=== PATIENT | male | born 1935 | race Caucasian/White ===

== ENCOUNTER 2018-01-12 18:44 | Inpatient (IN) ==
--- NOTE | 2018-01-12 20:12 | ED ---
HPI General Chief complaint: Psychiatric Symptoms Stated complaint: Psych eval / SMA Transport Time Seen by Provider: 01/12/18 19:58 History of Present Illness HPI narrative: 82 y/o male sh[place] under [place] from [employer]. According to his paperwork he has been feeling suicidal, thoughts of running into traffic. he reprots that he has been arguing with his and he cant take it anymore. He feels that she is controlling and he feels backed up to a wall. Hx of dementia and atrial fibrillation per patient. Symptoms moderate, duration unknown, aggravated by life stressors. No drug/alcohol use, HI, AH/VH. Related Data Home Medications Medication Instructions Recorded Confirmed warfarin 01/12/18 Allergies Allergy/AdvReac Type Severity Reaction Status Date / Time No Known Allergies Allergy Verified 01/12/18 20:11 Review of Systems ROS: all other systems reviewed are negative [facility] Medical History Medical History Atrial fibrillation (Acute) Undescended testicle (Acute) Social History Social History Substance History: No History of Abuse Smoking Status: Never smoker How Often Do You Have a Drink Containing Alcohol: Never Recent Travel in [facility] within the Last 8 Weeks: No Recent Out of Country Travel within the Last 8 Weeks: No Exam Narrative Exam Narrative: GENERAL: Well-developed well-nourished male in no acute distress answering questions appropriately. SKIN: Warm and dry. HEAD: Atraumatic. Normocephalic. EYES: Pupils equal and round. No scleral icterus. No injection or drainage. ENT: No nasal bleeding or discharge. Mucous membranes pink and moist. NECK: Trachea midline. No JVD. CARDIOVASCULAR: Irregular rate and rhythm. No murmur appreciated. RESPIRATORY: No accessory muscle use. Clear to auscultation. Breath sounds equal bilaterally. GASTROINTESTINAL: Abdomen soft, non-tender, nondistended. Hepatic and splenic margins not palpable. MUSCULOSKELETAL: No obvious deformities. No clubbing. No cyanosis. No edema. NEUROLOGICAL: Awake and alert. No obvious cranial nerve deficits. Motor grossly within normal limits. Normal speech. PSYCHIATRIC: Depressed mood. Insight and judgment normal. Course Initial Documented Vital Signs Temperature 98.0 F 01/12/18 19:12 Pulse Rate 81 01/12/18 19:12 Respiratory Rate 18 01/12/18 19:12 Blood Pressure 162/92 H 01/12/18 19:12 Pulse Oximetry 98 01/12/18 19:12 Last Documented Vital Signs Temperature 98.0 F 01/12/18 19:12 Pulse Rate 81 01/12/18 19:12 Respiratory Rate 18 01/12/18 19:12 Blood Pressure 162/92 H 01/12/18 19:12 Pulse Oximetry 98 01/12/18 19:12 Medical Decision Making MDM Narrative Medical decision making narrative: Mental health screening discussed with the patient. Psychiatric screen ordered. Lab work has been reviewed. INR is therapeutic. The patient is medically cleared for psychiatric disposition. Medical Screen Exam Complete: Yes Emergency Medical Condition: Yes Differential Diagnosis Differential Diagnosis: Adjustment reaction, acute psychosis, major depressive disorder, depressive disorder not otherwise specified Lab Data Result diagrams: 01/12/18 19:42 01/12/18 19:42 Lab Results 01/12/18 01/12/18 01/12/18 Range/Units 19:42 19:42 19:42 WBC 5.4 (4.0-11.0) th/mm3 RBC 4.44 L (4.50-5.90) mil/mm3 Hgb 14.8 (13.0-17.0) gm/dL Hct 42.7 (39.0-51.0) % MCV 96.1 (80.0-100.0) fL MCH 33.4 (27.0-34.0) pg MCHC 34.7 (32.0-36.0) % RDW 13.8 (11.6-17.2) % Plt Count 140 L (150-450) th/mm3 MPV 8.9 (7.0-11.0) fL Neut % (Auto) 72.4 H (16.0-70.0) % Lymph % (Auto) 18.8 (9.0-44.0) % [place] % (Auto) 8.0 (0.0-8.0) % Eos % (Auto) 0.7 (0.0-4.0) % Baso % (Auto) 0.1 (0.0-2.0) % Neut # (Auto) 3.9 (1.8-7.7) th/mm3 Lymph # (Auto) 1.0 (1.0-4.8) th/mm3 [place] # (Auto) 0.4 (0.0-0.9) th/mm3 Eos # (Auto) 0.0 (0.0-0.4) th/mm3 Baso # (Auto) 0.0 (0.0-0.2) th/mm3 WBC Differential . Differential Comment Auto diff final PT 27.4 H (9.8-11.6) sec INR 2.7 Ratio Sodium 139 (136-145) meq/L Potassium 3.9 (3.5-5.1) meq/L Chloride 103 (98-107) meq/L Carbon Dioxide 26.5 (21.0-32.0) meq/L Anion Gap 10 (5-15) meq/L BUN 18 (7-18) mg/dL Creatinine 1.08 (0.60-1.30) mg/dL Estimated GFR 65 L (>89) mL/min Random Glucose 85 (74-106) mg/dL Calcium 9.6 (8.5-10.1) mg/dL Magnesium 2.0 (1.5-2.5) mg/dL Total Bilirubin 1.9 H (0.2-1.0) mg/dL AST 26 (15-37) U/L ALT 26 (12-78) U/L Alkaline Phosphatase 51 (45-117) U/L Total Protein 7.7 (6.4-8.2) g/dL Albumin 4.1 (3.4-5.0) g/dL TSH 1.650 (0.358-3.740) uIU/mL Urine Opiates Screen (Neg) Ur Barbiturates Screen (Neg) Ur Amphetamines Screen (Neg) U Benzodiazepines Scrn (Neg) Urine Cocaine Screen (Neg) U Cannabinoids Screen (Neg) Serum Alcohol Less than 3 (0-5) mg/dL 01/12/18 Range/Units 20:11 WBC (4.0-11.0) th/mm3 RBC (4.50-5.90) mil/mm3 Hgb (13.0-17.0) gm/dL Hct (39.0-51.0) % MCV (80.0-100.0) fL MCH (27.0-34.0) pg MCHC (32.0-36.0) % RDW (11.6-17.2) % Plt Count (150-450) th/mm3 MPV (7.0-11.0) fL Neut % (Auto) (16.0-70.0) % Lymph % (Auto) (9.0-44.0) % [place] % (Auto) (0.0-8.0) % Eos % (Auto) (0.0-4.0) % Baso % (Auto) (0.0-2.0) % Neut # (Auto) (1.8-7.7) th/mm3 Lymph # (Auto) (1.0-4.8) th/mm3 [place] # (Auto) (0.0-0.9) th/mm3 Eos # (Auto) (0.0-0.4) th/mm3 Baso # (Auto) (0.0-0.2) th/mm3 WBC Differential Differential Comment PT (9.8-11.6) sec INR Ratio Sodium (136-145) meq/L Potassium (3.5-5.1) meq/L Chloride (98-107) meq/L Carbon Dioxide (21.0-32.0) meq/L Anion Gap (5-15) meq/L BUN (7-18) mg/dL Creatinine (0.60-1.30) mg/dL Estimated GFR (>89) mL/min Random Glucose (74-106) mg/dL Calcium (8.5-10.1) mg/dL Magnesium (1.5-2.5) mg/dL Total Bilirubin (0.2-1.0) mg/dL AST (15-37) U/L ALT (12-78) U/L Alkaline Phosphatase (45-117) U/L Total Protein (6.4-8.2) g/dL Albumin (3.4-5.0) g/dL TSH (0.358-3.740) uIU/mL Urine Opiates Screen Neg (Neg) Ur Barbiturates Screen Neg (Neg) Ur Amphetamines Screen Neg (Neg) U Benzodiazepines Scrn Neg (Neg) Urine Cocaine Screen Neg (Neg) U Cannabinoids Screen Neg (Neg) Serum Alcohol (0-5) mg/dL Discharge Plan Discharge Disposition Patient Disposition: 30 Still Patient Discharge Condition Condition: Stable Discharge Details Diagnosis: Encounter for medical clearance for patient hold Physicians Team ED Provider: Moises Segovia ED Midlevel Provider: Tayo Zepeda Rxs /Orders / Referrals /Forms Prescriptions: No Action warfarin 5 mg Tablet RF: 0 Status ED Status: With Doctor
[2018-01-12 21:02] LABS: Baso % (Auto) 0.1 % (0.0-2.0); Eos % (Auto) 0.7 % (0.0-4.0); Hematocrit 42.7 % (39.0-51.0); Hemoglobin 14.8 gm/dL (13.0-17.0); Lymph % (Auto) 18.8 % (9.0-44.0); Mean Corpuscular HGB Conc 34.7 % (32.0-36.0); Mean Corpuscular Hemoglobin 33.4 pg (27.0-34.0); Mean Corpuscular Volume 96.1 fL (80.0-100.0); Mean Platelet Volume 8.9 fL (7.0-11.0); Mono # (Auto) 0.4 th/mm3 (0.0-0.9); Neut # (Auto) 3.9 th/mm3 (1.8-7.7); Neut % (Auto) 72.4 % (16.0-70.0); Platelet Count 140 th/mm3 (150-450); Red Blood Count 4.44 mil/mm3 (4.50-5.90); Red Cell Distribution Width 13.8 % (11.6-17.2); White Blood Count 5.4 th/mm3 (4.0-11.0)
[2018-01-12 21:07] LABS: Amphetamine Screen,Urine Neg (Neg); Barbiturate Screen,Urine Neg (Neg); Cannabinoid Screen,Urine Neg (Neg); Cocaine Screen,Urine Neg (Neg)
[2018-01-12 21:16] LABS: Albumin 4.1 g/dL (3.4-5.0); Anion Gap 10 meq/L (5-15); Aspartate Aminotransferase 26 U/L (15-37); Blood Urea Nitrogen 18 mg/dL (7-18); Calcium 9.6 mg/dL (8.5-10.1); Carbon Dioxide 26.5 meq/L (21.0-32.0); Chloride 103 meq/L (98-107); Glomerular Filtration Rate 65 mL/min (>89); Glucose,Random 85 mg/dL (74-106); Potassium 3.9 meq/L (3.5-5.1); Sodium 139 meq/L (136-145)
[2018-01-12 21:17] LABS: Alanine Aminotransferase 26 U/L (12-78)
[2018-01-12 21:18] LABS: Opiate Screen,Urine Neg (Neg)
[2018-01-12 21:19] LABS: INR 2.7 Ratio; Prothrombin Time 27.4 sec (9.8-11.6)
[2018-01-12 21:26] LABS: Alkaline Phosphatase 51 U/L (45-117); Total Protein 7.7 g/dL (6.4-8.2)
[2018-01-13] MEDS ORDERED: Bisacodyl 10 MG Supp RECTAL PRN (11:14)
[2018-01-13] MEDS ORDERED: Aluminum/Magnesium/Simethacone Susp 30 ML UDC PO PRN (11:14)
[2018-01-13] MEDS: Senna/Docusate Sodium 8.6/50 MG Tablet PO SCH (21:44)
[2018-01-14 07:41] LABS: Calcium 8.7 mg/dL (8.5-10.1); Carbon Dioxide 29.4 meq/L (21.0-32.0); Chol/HDL Ratio 2.04 Ratio; HDL Cholesterol 70.8 mg/dL (40.0-60.0); Potassium 3.9 meq/L (3.5-5.1)
[2018-01-14] MEDS: Senna/Docusate Sodium 8.6/50 MG Tablet PO SCH ×2 (09:52→20:50)
--- NOTE | 2018-01-14 13:43 | P.HPPSY ---
Provisional Diagnosis Admission Date: January 13, 2018 11:14 Competence Certification of Person's Competence To Provide Express and Informed Consent I have personally examined Moises Lorenz, a person being served at [facility] on, January 14, 2018 1937. Express and informed consent means consent voluntarily given in writing, by a competent person, after sufficient explanation and disclosure of the subject matter involved to enable the person to make a knowing and willful decision without any element of force, fraud, deceit, duress, or other form of constraint or coercion. This person is 18 years of age or older, is not now known to be incompetent to consent to treatment with a guardian advocate, and does not have a health care surrogate or proxy currently making medical treatment decisions. I have found this person to be one of the following: [X] Competent to provide express and informed consent, as defined above, for voluntary admission to this facility and is competent to provide express and informed consent for treatment. He/she has the consistent capacity to make well reasoned, willful, and knowing decisions concerning his or her medical or mental health treatment. The person fully and consistently understands the purpose of the admission for examination/placement and is fully capable of personally exercising all rights assured under [place] [] Incompetent to provide express and informed consent to voluntary admission, and this is incompetent to provide express and informed consent to treatment. The person must be transferred to involuntary status and a petition for a guardian advocate filed with the Circuit Court. [] Refusing to provide express and informed consent to voluntary admission but is competent to provide express and informed consent for treatment. The person must be discharged or transferred to involuntary status. Form shall be completed within 24 hours of a person's arrival at the receiving facility and filed in the clinical record of each person: 1. Admitted on a voluntary basis 2. Permitted to provide express and informed consent to his/her own treatment 3. Allowed to transfer from involuntary to voluntary status 4. Prior to permitting a person to consent to his or her own treatment after having been previously found incompetent to consent to treatment. History of Present Illness Capacity: Has capacity Chief Complaint: SI History of Present Illness: Patient is an 82-year-old male with a history of depressive disorder. History of dementia as well. He is admitted [facility] after an argument with his . Patient notes an increase in arguing over minutia that results in an escalation that he could not take anymore. Patient became frustrated and wanted to be out of that environment. He subsequently called the police and said he would jump into traffic if they did not take him away. Patient says that this is an impulsive thought and he regularly does not have suicidal ideation intent or plan. Today he is asking for us to find him a new place to live away from his . During the interview, patient is pleasant and cooperative. He denies daily depressed mood. Denies suicidal or homicidal ideation intent or plan. Not on any psychotropic medication. Denies bipolar symptoms. Denies psychotic symptoms. Past psych: Denies outpatient history. Denies history of psychotropic medications. Patient was [facility] in 2010 after his said he was aggressive. Denies a history of suicide attempts. Past medical: Atrial fibrillation Past Famhx: Denies Past Social: Patient is originally from [place]. He has 3 children with a different . He is to this since 2013. She is 70. He says he has occasional beer and does not drink regularly. He is not smoking. 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 This includes certification that hospital inpatient services are reasonable and necessary and in the case of services not specified as inpatient-only under 42 CFR 419.22(n), that they are appropriately provided as inpatient services in accordance to with the 2-midnight benchmark under 43 CFR 412.3(e) I certify that inpatient psychiatric hospital services are medically necessary. Evaluation and treatment and/or diagnostic testing are expected to improve the patient's condition. The patient needs on a daily basis, active treatment furnished directly by or requiring the supervision of inpatient psychiatric facility personnel. Estimated Total Length of Stay (Days): 7 Plans for Post Hospital Care: Home [facility] - History History Provided By: Patient - Medical History Medical History: Medical History (Last Reviewed 01/14/18 @ 13:41 by Yvan Sanders DO) Atrial fibrillation Undescended testicle - Tobacco History Smoking Status: Former smoker - Alcohol History How Often Do You Have a Drink Containing Alcohol: Monthly or less - Substance Use History Substance History: No History of Abuse - Substance Use Type Alcohol Status: Active Route Used: By Mouth Reason for Use: Feels Good - Travel History Recent Travel in the [place] Within the Last 8 Weeks: No Recent Travel Out of the Country Within the Last 8 Weeks: No - Immunization History Tetanus Immunization: Unsure Hx Influenza Vaccine This Season: No Medications and Allergies Active Medications: Active Medications Al Hydrox/Mg Hydrox/Simethicone (Mag-Al Plus Susp Liq) 30 ml PO Q6H PRN PRN Reason: DYSPEPSIA Al Hydroxide/Mg Hydroxide (Milk Of Magnesia Liq) 30 ml PO Q12H PRN PRN Reason: Mild Constipation Bisacodyl (Dulcolax Supp) 10 mg RECTAL DAILY PRN PRN Reason: SEVERE CONSITIPATION Lactulose (Lactulose Liq) 30 ml PO DAILY PRN PRN Reason: SEVERE CONSITIPATION Senna/Docusate Sodium (Fidelia-Colace) 1 tab PO BID [facility] Last Admin: 01/14/18 09:52 Dose: 1 tab Sennosides (Senokot) 17.2 mg PO Q12H PRN PRN Reason: Moderate Constipation Warfarin Sodium (Coumadin) 5 mg PO DAILY@1600 [facility] Allergies Allergy/AdvReac Type Severity Reaction Status Date / Time No Known Allergies Allergy Verified 01/12/18 20:11 Home Medications Medication Instructions Recorded Confirmed Type warfarin 5 mg PO DAILY 01/12/18 01/13/18 History Results - Labs CBC & Chem 7: 01/12/18 19:42 01/14/18 05:30 Labs: Laboratory Results - last 24 hr 01/14/18 05:30 Sodium 140 Potassium 3.9 Chloride 105 Carbon Dioxide 29.4 Anion Gap 6 BUN 19 H Creatinine 1.04 Estimated GFR 68 L Random Glucose 80 Calcium 8.7 D Triglycerides 50 Cholesterol 145 LDL Cholesterol, Calc 64 HDL Cholesterol 70.8 H Cholesterol/HDL Ratio 2.04 Exam Vital signs: Vital Signs 01/13/18 17:55 01/13/18 18:41 01/14/18 06:00 Temperature 99.1 F 99.1 F 97.5 F L Pulse Rate 80 80 91 H Respiratory Rate 17 17 17 Blood Pressure 116/81 116/81 120/62 Pulse Oximetry 94 L 94 L 96 Intake & Output 01/13/18 01/14/18 01/14/18 18:59 06:59 18:59 Intake Total 480 / 480 600 / 600 Balance 480 / 480 600 / 600 Weight 62.11 kg Intake: Oral 480 / 480 600 / 600 Other: Weight On Admission 62.11 kg Mental Status Examination Appearance: Appropriate Consciousness: Alert Orientation: x4 Motor Activity: Normal gait Speech: Unremarkable Language: Adequate Fund of Knowledge: Adequate Attention and Concentration: Adequate Memory: Unremarkable Mood: Sad Affect: Blunt Thought Process & Associations: Intact Thought Content: Appropriate Hallucination Type: None Delusion Type: None Suicidal Ideation: No Suicidal Plan: No Suicidal Intention: No Homicidal Ideation: No Homicidal Plan: No Homicidal Intention: No Insight: Poor Judgment: Poor Assessment and Plan - Assessment (1) Acute stress reaction Code(s): F43.0 - Acute stress reaction Status: Acute (2) Alzheimer's disease Code(s): G30.9 - Alzheimer's disease, unspecified; F02.80 - Dementia in other diseases classified elsewhere without behavioral disturbance Status: Acute - Plan Plan: Estimated LOS: [] days Admit patient for observation given his suicidal statements. No indication for medication at this time and patient prefers not to be on medication. He may sign voluntary. He should meet with the social welfare administrator Justification for Continued Inpatient Stay: pt would decompensate in a lower setting
[2018-01-14 14:05] LABS: Hemoglobin A1c 5.4 % (4.3-6.0)
--- NOTE | 2018-01-15 08:52 | P.PNPSY ---
Subjective Chief Complaint: SI Remarks: Chart reviewed and discussed with nursing staff. Patient was in the hallway on his way to breakfast. Patient is an 82 year old pleasant male who states that he is in a struggle with his who he in 2003. States that he does not want to speak with her. He is currently preparing a letter to outline his feeling and would like the letter mailed to her. He will accept mail if she decides to return a letter. He does not want information shared with his about his care. He is also expressing that he does not want to return home and wants to be placed in a facility where he can obtain support. Review of Systems All other systems reviewed negative except as stated in HPI Mental Status Examination Appearance: Appropriate Consciousness: Alert Orientation: x4 Motor Activity: Normal gait Speech: Unremarkable Language: Adequate Fund of Knowledge: Adequate Attention and Concentration: Adequate Memory: Unremarkable Mood: Sad Affect: Blunt Thought Process & Associations: Intact Thought Content: Appropriate Hallucination Type: None Delusion Type: None Suicidal Ideation: No Suicidal Plan: No Suicidal Intention: No Homicidal Ideation: No Homicidal Plan: No Homicidal Intention: No Insight: Poor Judgment: Poor Assessment and Plan - Assessment (1) Acute stress reaction Code(s): F43.0 - Acute stress reaction Status: Acute (2) Alzheimer's disease Code(s): G30.9 - Alzheimer's disease, unspecified; F02.80 - Dementia in other diseases classified elsewhere without behavioral disturbance Status: Acute - Plan Plan: Continue current treatment plan. Justification for Continued Inpatient Stay: Moving patient to a less restrictive environment may result in his decompensation.
[2018-01-15] MEDS: Senna/Docusate Sodium 8.6/50 MG Tablet PO SCH ×2 (09:07→21:28)
[2018-01-15] MEDS: Ascorbic Acid 500 MG Tablet PO SCH (09:42)
[2018-01-16] MEDS: Ascorbic Acid 500 MG Tablet PO SCH (09:14)
[2018-01-16] MEDS: Senna/Docusate Sodium 8.6/50 MG Tablet PO SCH ×2 (09:15→21:27)
[2018-01-16 20:49] LABS: INR 2.5 Ratio
--- NOTE | 2018-01-16 21:11 | P.PNPSY ---
Subjective Chief Complaint: SI Remarks: Patient seen for follow-up, chart reviewed. Discussion with nursing staff reported that patient patient appropriate on the unit noted to be, cooperative denying any suicidal ideation at this time states that he is feeling well. Patient was found sitting hospital chair noted be calm and cooperative. Patient state he is feeling "great" stating that he is happy and at peace that he is away from his . He recalls having called [phone] after recent argument with and admitted having said to the railroad police officer that he would end up in traffic if he was not to get away from his home. He denies any previous suicide attempts in the past stated he had no prior suicide ideation prior to that event but reports having walked to a fci from his home 2000-01-21 under similar circumstances. He reports having relational discord with his at this time does not have any depressive symptoms nor any suicide ideations stating "I only said that to get out of there". Review of Systems All other systems reviewed negative except as stated in HPI Mental Status Examination Appearance: Appropriate Consciousness: Alert Orientation: x4 Motor Activity: Normal gait Speech: Unremarkable Language: Adequate Fund of Knowledge: Adequate Attention and Concentration: Adequate Memory: Unremarkable Mood: Appropriate Affect: Appropriate Thought Process & Associations: Intact Thought Content: Appropriate Hallucination Type: None Delusion Type: None Suicidal Ideation: No Suicidal Plan: No Suicidal Intention: No Homicidal Ideation: No Homicidal Plan: No Homicidal Intention: No Insight: Poor Judgment: Poor Assessment and Plan - Assessment (1) Acute stress reaction Code(s): F43.0 - Acute stress reaction Status: Acute (2) Alzheimer's disease Code(s): G30.9 - Alzheimer's disease, unspecified; F02.80 - Dementia in other diseases classified elsewhere without behavioral disturbance Status: Acute - Plan Plan: Patient this time noted to have notable memory impairment likely secondary to dementia but denying any depressive symptoms and admitting to having suicidal ideation to [facility] but noted to be taken away from his home and away from his . Patient continues to require no psychotropic interventions and there is no clear indication of starting any treatment at this time. Patient continues to refuse to return home or accept any phone calls from his at this time. We will continue to explore possibilities of having patient referred to residential facilities or possibility of patient having return back to his home. Discharge planning a progress. Justification for Continued Inpatient Stay: At risk of further decompensation at lower level care.
[2018-01-17] MEDS: Senna/Docusate Sodium 8.6/50 MG Tablet PO SCH ×2 (10:00→21:16)
[2018-01-17] MEDS: Ascorbic Acid 500 MG Tablet PO SCH (10:13)
[2018-01-17 10:41] LABS: INR 2.4 Ratio; Prothrombin Time 24.1 sec (9.8-11.6)
--- NOTE | 2018-01-17 11:51 | P.PNPSY ---
Subjective Chief Complaint: SI Remarks: Reviewed electronic medical records and discussed case with staff. Follow-up was conducted in the day room. Patient in a good mood with euthymic affect. Reports that he had just taken a shower. States that he sleeping and eating well. When asked what he would like to achieve from this visit he states "put me in a detention somewhere". After discussing the case with Dr. Zhang, I have ordered a neuropsychological consult. Mental Status Examination Appearance: Appropriate Consciousness: Alert Orientation: x4 Motor Activity: Normal gait Speech: Unremarkable Language: Adequate Fund of Knowledge: Adequate Attention and Concentration: Adequate Memory: Unremarkable Mood: Appropriate Affect: Appropriate Thought Process & Associations: Intact Thought Content: Appropriate Hallucination Type: None Delusion Type: None Suicidal Ideation: No Suicidal Plan: No Suicidal Intention: No Homicidal Ideation: No Homicidal Plan: No Homicidal Intention: No Insight: Poor Judgment: Poor Assessment and Plan - Assessment (1) Acute stress reaction Code(s): F43.0 - Acute stress reaction Status: Acute - Plan Plan: Pending neuro psychological evaluation. Justification for Continued Inpatient Stay: Moving this patient to a less restrictive environment would likely result in decompensation.
[2018-01-18 05:56] VITALS: RESP 17
--- NOTE | 2018-01-18 09:40 | P.PNPSY ---
Subjective Chief Complaint: SI Remarks: Reviewed electronic medical records and discussed case with staff. Follow-up was conducted in the day room. Patient eating breakfast. Reports that he has a healthy appetite. States that he slept well last night. His main concern still seems to be his living arrangements. He continues to maintain that his is "mean to me". He is noted to become extremely anxious whenever he approaches the topic of returning to his marital home. Mental Status Examination Appearance: Appropriate Consciousness: Alert Orientation: x4 Motor Activity: Normal gait Speech: Unremarkable Language: Adequate Fund of Knowledge: Adequate Attention and Concentration: Adequate Memory: Unremarkable Mood: Appropriate Affect: Appropriate Thought Process & Associations: Intact Thought Content: Appropriate Hallucination Type: None Delusion Type: None Suicidal Ideation: No Suicidal Plan: No Suicidal Intention: No Homicidal Ideation: No Homicidal Plan: No Homicidal Intention: No Insight: Poor Judgment: Poor Assessment and Plan - Assessment (1) Acute stress reaction Code(s): F43.0 - Acute stress reaction Status: Acute - Plan Plan: Patient will be reevaluated by the attending psychiatrist. Continue with current treatment plan. Justification for Continued Inpatient Stay: Moving this patient to a less restrictive environment would likely result in decompensation.
[2018-01-18] MEDS: Senna/Docusate Sodium 8.6/50 MG Tablet PO SCH ×2 (09:55→21:58)
[2018-01-18] MEDS: Ascorbic Acid 500 MG Tablet PO SCH (09:55)
[2018-01-18 10:02] LABS: INR 2.9 Ratio; Prothrombin Time 29.7 sec (9.8-11.6)
--- NOTE | 2018-01-18 12:45 | P.NPEVAL ---
Disclaimer Patient was given an explanation of the nature and purpose of the evaluation. Patient agreed to proceed with the evaluation and treatment plan. History - Reason for Referral The patient is a 82 year old left handed man who was admitted to the psychiatry unit of [facility] on 01/13/2018 under [facility] due to reports of self- harm ideation following an argument with his . This patient has a history of depression and by his report, dementia. He did report sustaining a stroke in 2004 that left him with right-sided weakness and speech difficulties. He is referred for baseline neuropsychological evaluation to assess cognitive, behavioral and emotional aspects of the injury and to provide treatment recommendations. - Additional Psychosocial History Smoking Status: Former smoker Marital status: Education Level: 12 Years or Less Employment Status: Self-Employed Living Arrangement Prior to Admission: Lives With Spouse/Significant Other Living Arrangement Prior to Admission: Spouse Hand Dominance: Left PMFSH - History History Provided By: Patient - Medical History Medical History: Medical History (Last Reviewed 01/14/18 @ 13:41 by Yvan Sanders DO) Atrial fibrillation Undescended testicle - Tobacco History Smoking Status: Former smoker - Alcohol History How Often Do You Have a Drink Containing Alcohol: Monthly or less - Substance Use History Substance History: No History of Abuse, Past History - Substance Use Type Alcohol Status: Active Route Used: By Mouth Reason for Use: Feels Good - Travel History Recent Travel in the [place] Within the Last 8 Weeks: No Recent Travel Out of the Country Within the Last 8 Weeks: No - Immunization History Tetanus Immunization: Unsure Hx Influenza Vaccine This Season: No Medications Active Medications Al Hydrox/Mg Hydrox/Simethicone (Mag-Al Plus Susp Liq) 30 ml PO Q6H PRN PRN Reason: DYSPEPSIA Al Hydroxide/Mg Hydroxide (Milk Of Magnesia Liq) 30 ml PO Q12H PRN PRN Reason: Mild Constipation Ascorbic Acid (Vitamin C) 500 mg PO DAILY MELISSA Last Admin: 01/18/18 09:55 Dose: 500 mg Bisacodyl (Dulcolax Supp) 10 mg RECTAL DAILY PRN PRN Reason: SEVERE CONSITIPATION Lactulose (Lactulose Liq) 30 ml PO DAILY PRN PRN Reason: SEVERE CONSITIPATION Multivitamins (Theragran) 1 tab PO DAILY MELISSA Last Admin: 01/18/18 09:55 Dose: 1 tab Senna/Docusate Sodium (Fidelia-Colace) 1 tab PO BID [facility] Last Admin: 01/18/18 09:55 Dose: Not Given Sennosides (Senokot) 17.2 mg PO Q12H PRN PRN Reason: Moderate Constipation Warfarin Sodium (Coumadin) 5 mg PO DAILY@1600 [facility] Last Admin: 01/17/18 17:01 Dose: 5 mg Mental Status Assessment - Mental Status Orientation: oriented to: Self, Place, Time, Situation Mental Status: Variable: Thought processing, Language/interactions, Impaired: Attention, Learning/memory, Problem-solving, Visuospatial/construction Absent: Hallucinations, Delusions Adjustment/Coping Assessment - Adjustment/Coping Adjustment/Coping: Mild: Depression, Anxiety, Awareness, Insight - Observation In terms of emotional functioning, the patient demonstrated challenges. This patient demonstrated no signs of agitation, impulsivity or disinhibition, nor was there remarkable evidence of a formal thought disorder or psychosis. There was some evidence of depression or anxiety related to his marital turmoil. The Geriatric Depression Scale-Short Form was administered given the ease to which it is administered to persons with known neurological pathology, and the patient endorsed 5 of 15 symptoms, which falls within the mildly depressed range. Thought content was free from suicidal, homicidal or paranoid ideation, and thought processes were generally logical and goal-directed but at times tangential. The patients mood was euthymic, and his affect was stable and appropriate. The patient appears to possess insight and awareness into his situation and within the limits of this brief evaluation, adequate basic judgment. Effort Effort: Average Cognition Assessment - Attention/Processing Speed Rating: WFL: Attention/processing, Language, Immediate & delayed memory, Visual perception, Spatial judgment, Executive, Awareness - insight adjustment Observation: The patient was alert and oriented to person, place, time and circumstances surrounding the recent hospitalization. The Mini-Mental State Exam was administered, and the patient obtained a score of 29 out of 30 points, which falls in the normalrange. However, on further evaluation, minor deficits were identified. In terms of attention skills, the patient exhibited normal abilities. The patient was able to remain on task and remember basic and complex verbal instructions. The patient was able to spell the word WORLD backwards, and recall word lists after one trial. In terms of memory functioning, the patient exhibited normal abilities. The patients initial registration of verbal information was normal, and the patient was able to improve their memory with repetition. After a period of delay, the patient was able to recall this information from memory. More specifically, on the Luria Memory Words Test-Short Form, the patients trial one performance was 5 of 7 words, trial five performance was 7 of 7 words, the patients Total Learning score was 30 (above cut-off), and the patients Delayed recall score was 6 of 7 words (above cut-off). The patients ability to recall verbal information in a paragraph format was considered normal , as he was able to recall 43% of such information after a brief delay. In terms of speech and language skills, the patient demonstrated only minor challenges. The patients initiated spontaneous conversation throughout the assessment. Speech was characterized by adequate prosody, grammar, articulation, volume and rate. No remarkable dysnomic or paraphasic errors were noted either during conversational speech or on confrontation naming tasks. At times, he exhibited word retrieval difficulties. Reading recognition skills were adequate, as were writing skills. On the reading subtest of the WRAT-4, he earned a standard score of 118 (percentile rank of 88) which is consistent with baseline expectations of his abilities. The patients comprehension for basic one- and two-stage commands was normal. In terms of problem-solving skills, the patient exhibited generally normal abilities. The patients ability to understand abstraction reasoning was relatively normal, as reflected in his ability to abstract essential shared characteristics of objects and concepts. Mathematical reasoning skills were also relatively normal. Speed of information processing, as evaluated by both the Letter and Category Fluency Tests was below normal, but not significantly impaired. Finally, there was no evidence of ideomotor apraxia or constructional difficulties during this brief evaluation. 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 He exhibits some mild word retrieval difficulties and slowed processing speed, but otherwise, his memory, learning and executive functioning skills are consistent with his advanced age. He is situationally depressed, obviously at ends with his , with whom he has significant disagreements. Overall, he is relatively odd, but not incapacitated from a neurocognitive standpoint. I do not see evidence of an underlying Alzheimer's disorder. Recommendations Recommendations: From my evaluation results, this patient does have decision making capacity. He does demonstrate the ability to appreciate a situation and its likely consequences and the ability to manipulate information rationally. There may be psychiatric issues that limit his decision making capacity, but not neurocognitive. 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 He wishes to move away from his . He has been relatively unconventional his entire life, although with his advanced age, he may not be able to live the same lifestyle going forward.
[2018-01-18 17:51] VITALS: O2SAT 94
[2018-01-19 05:57] VITALS: BP 133/75; PULSE 74; TEMP 98.4
[2018-01-19] MEDS: Senna/Docusate Sodium 8.6/50 MG Tablet PO SCH (08:31)
[2018-01-19] MEDS: Ascorbic Acid 500 MG Tablet PO SCH (08:31)
--- NOTE | 2018-01-19 09:07 | P.TTN ---
- Patient Problems Problems: 1. Discharge planning 2. Medication compliance 3. Knowledge deficit 4. Lack of coping skills - Progress Toward Goals Provider Present: Dr. Cj Zhang Provider Input: 01/18: Lisbet will follow up with pt today; DC planning to home or a facility; no evidence of abuse in the home per Nova Nurse(s) Present: Gloria Nurse Input: 01/19: Pt will be discharged today; he cooperative and compliant; no behavioral issues Psychiatric Counselors Present: Nova Jenkins [facility] Psychiatric Therapist Input: 01/18: DC planning in progress to home or a facility; there is no evidence of abuse at home; pt complains of verbal abuse; pt's demands for pt to go home; she reports that she has contacted her estate planning attorney; states that pt has a green card/ her for citizenship; she refuses to talk to pt directly, will only communicate through counselor or third republican; pt cannot be discharged homeless due to dementia Group Spec/RT/OT/HUFF Present: DARIA Beltran Group Spec/RT/OT/HUFF Input: 01/18: Pt attends select groups with encouragement ; he is seen often writing on the unit seclusive to self; no behavioral issues Clinical Coordinator: Vanessa Santos [facility] - Discharge Plan Other 01/18: DC planning in progress to home or a facility - Documentation Teaching Recipient: Patient
--- NOTE | 2018-01-19 09:35 | P.DSPSY ---
Psychiatry Discharge Summary Inpatient Psychiatric care?: Yes Advance Directives: No Mental Health Advance Directive: No Health Care Proxy: No - Admission Admission Date: January 13, 2018 11:14 - Admission Diagnosis (1) Acute stress reaction Code(s): F43.0 - Acute stress reaction (2) Alzheimer's disease Code(s): G30.9 - Alzheimer's disease, unspecified; F02.80 - Dementia in other diseases classified elsewhere without behavioral disturbance Brief History: Patient is an 82-year-old male with a history of depressive disorder. History of dementia as well. He is admitted Via [facility] after an argument with his . Patient notes an increase in arguing over minutia that results in an escalation that he could not take anymore. Patient became frustrated and wanted to be out of that environment. He subsequently called the police and said he would jump into traffic if they did not take him away. Patient says that this is an impulsive thought and he regularly does not have suicidal ideation intent or plan. Today he is asking for us to find him a new place to live away from his . During the interview, patient is pleasant and cooperative. He denies daily depressed mood. Denies suicidal or homicidal ideation intent or plan. Not on any psychotropic medication. Denies bipolar symptoms. Denies psychotic symptoms. Past psych: Denies outpatient history. Denies history of psychotropic medications. Patient was Love acted in 2010 after his said he was aggressive. Denies a history of suicide attempts. Past medical: Atrial fibrillation Past Famhx: Denies Past Social: Patient is originally from [place]. He has 3 children with a different . He is to this since 2013. She is 70. He says he has occasional beer and does not drink regularly. He is not smoking. 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 [place] Tobacco Use In Past 30 Days: No How Often Do You Have a Drink Containing Alcohol: Monthly or less Hospital Course: Patient is an 82-year-old male, , domiciled with a past psychiatric history of depressive disorder, dementia, brought in under Love act after an argument with his over minutia that results in an escalation that he could not take anymore which he became frustrated and wanted to be out of that environment and subsequently called the police and said he would jump into traffic if they did not take him away which she was admitted to the inpatient psychiatry for further evaluation and management. Patient was admitted to a locked, inpatient psychiatric unit. Appropriate precautions were in place throughout patient's hospital stay. Patient was seen and examined on the unit by psychiatry. Psychotropic medications were not started as there was no indication to start any medication at this time. There was no evidence of any suicidality or homicidality on the inpatient unit which patient simply stated that he had endorse this simply to get away from his . Patient's mood improved with the benefit of milieu of the unit and had no behavioral disturbance since admission. Patient was noted to have maintained stable mood, noted to participate and engage in treatment and interact with staff adequately. Patient noted to be future oriented with plans to continue to live with his and outpatient follow-up appointments for continuity of care. Counselor has arranged discharge plan which had no concerns of patient returning home. On the day of discharge: Patient seen and examined; chart reviewed. Case discussed with nurse and counselor. No behavioral issues overnight. On my examination today, the patient denies any suicidal homicidal ideation, intent or plan on direct questioning and contracts for safety. Patient denies any perceptional disturbances and no delusional material verbalized today. No physical complaints. Suicide and violence risk assessment on day of discharge both suggest lower imminent risk, and the patient 's level of function is adequate for plan level of outpatient care. Patient has maximized benefit from this inpatient psychiatric hospital stay and will be discharged with discharge plan as arranged by counselor. Patient advised to return to psychiatric emergency room for any concerning psychiatric symptoms. Patient agrees with plan. - Discharge Discharge Date: 01/19/18 - Discharge Diagnosis (1) Acute stress reaction Code(s): F43.0 - Acute stress reaction Status: Acute (2) Alzheimer's disease Code(s): G30.9 - Alzheimer's disease, unspecified; F02.80 - Dementia in other diseases classified elsewhere without behavioral disturbance Status: Acute Discharge Disposition: Home - Discharge Instructions Discharge Diet: Heart Healthy Diet Activities You Can Perform: Weight Bearing As Tolerat - Discharge Time > 30 minutes Mental Status Examination Appearance: Appropriate Consciousness: Alert Orientation: x4 Motor Activity: Normal gait Speech: Unremarkable Language: Adequate Fund of Knowledge: Adequate Attention and Concentration: Adequate Memory: Unremarkable Mood: Appropriate Affect: Appropriate Thought Process & Associations: Intact Thought Content: Appropriate Hallucination Type: None Delusion Type: None Suicidal Ideation: No Suicidal Plan: No Suicidal Intention: No Homicidal Ideation: No Homicidal Plan: No Homicidal Intention: No Insight: Fair Judgment: Impulsive Discharge/Advance Care Plan - Results Vital Signs: Last Vital Signs Temp 98.4 F 01/19/18 05:55 Pulse 74 01/19/18 05:55 Resp 17 01/19/18 05:55 BP 133/75 01/19/18 05:55 Pulse Ox 94 L 01/19/18 05:55 Lab Results: Abnormal Lab Results 01/18/18 08:42 PT 29.7 H INR 2.9 Laboratory Results Hemoglobin A1c 5.4 % (4.3-6.0) 01/14/18 05:30 Triglycerides 50 mg/dL (42-150) 01/14/18 05:30 Cholesterol 145 mg/dL (120-200) 01/14/18 05:30 LDL Cholesterol, Calc 64 mg/dL (0-99) 01/14/18 05:30 HDL Cholesterol 70.8 mg/dL (40.0-60.0) H 01/14/18 05:30 TSH 1.650 uIU/mL (0.358-3.740) 01/12/18 19:42 Summary of Procedures: none Pending Results: None - Medications Number of antipsychotic medications at discharge: 0 - Discharge Care Plan Goals to Promote Your Health: * To prevent worsening of your condition and complications * To maintain your health at the optimal level Directions to Meet Your Goals: Take your medications as prescribed Follow your dietary instruction Follow activity as directed Keep your appointments as scheduled Take your immunizations and boosters as scheduled If your symptoms worsen call your PCP, if no PCP go to Urgent Care Center or Emergency Room For 11/10 questions related to your inpatient stay or results of tests pending at discharge, please contact Dr. Bogdan Zhang MD at Smoking is Dangerous to Your Health. Avoid second hand smoking
== END 2018-01-19 13:00 | disposition home or self-care (01) ==
LOC: NEDAMB 18:44 → NEDA 01-13 11:14 → H250 01-13 13:55 → NEDA 01-13 13:55 → H250 01-16 09:10
PROVIDERS: ADMIT Student in an Organized Health Care Education/Training Program; ATTEND Student in an Organized Health Care Education/Training Program